=== PATIENT | female | born 1960 | race Caucasian/White ===

== ENCOUNTER → 2016-10-12 | Outpatient (CLI) | payer OTHER ==
[~2016-10-12] MED LIST: HYDR-34 PO; LISI1TAB PO; LISI1TAB10 PO; MELO-198 PO; MELO7.5T PO; NIFE90TA4 PO; OMEP20CA6 PO; OXYC-12 PO; PARO20TA57 PO; PRX20T PO
--- NOTE | 2016-10-12 13:45 | Diagnostic Imaging Report ---
EXAMINATION: DEXA scan. INDICATION: Osteopenia TECHNIQUE: Bone mineral density estimated based on dual energy radiography over the lumbar spine and femoral necks, was performed. FINDINGS: The lumbar spine T-score is -0.8. T score of 0.3 in the left femoral neck and 0.4 on the right side seen. IMPRESSION: Bone mineral density is near the lower limits of normal.. Dictated by: Dictated on workstation # [id number]
== END ==
LOC: RAD 09:47
PROVIDERS: ATTEND Physician Assistant
DX: M81.0 Age-related osteoporosis without current pathological fracture (principal)
CPT/HCPCS: 77080

== ENCOUNTER → 2017-05-17 | Outpatient (CLI) | payer OTHER ==
[2017-05-17 16:10] LABS: BASOPHILS % (AUTO) 0 % (0-10); EOSINOPHILS # (AUTO) 0.1 10^3/uL (0.0-0.3); EOSINOPHILS % (AUTO) 2 % (0-10); LYMPHOCYTES # (AUTO) 1.8 X 10^3 (1.0-4.0); LYMPHOCYTES % (AUTO) 19 % (12-44); MEAN CORPUSCULAR HEMOGLOBIN 29 PG (25-34); MEAN CORPUSCULAR HGB CONC 34 G/DL (32-36); MEAN CORPUSCULAR VOLUME 84 FL (80-99); MEAN PLATELET VOLUME 9.9 FL (7.4-10.4); MONOCYTES # (AUTO) 0.7 X 10^3 (0.0-1.0); MONOCYTES % (AUTO) 7 % (0-12); NEUTROPHILS # (AUTO) 6.8 X 10^3 (1.8-7.8); NEUTROPHILS % (AUTO) 72 % (42-75); PLATELET COUNT 328 10^3/uL (130-400); RED CELL DISTRIBUTION WIDTH 13.2 % (10.0-14.5); WHITE BLOOD COUNT 9.4 10^3/uL (4.3-11.0)
[2017-05-17 16:35] LABS: ALANINE AMINOTRANSFERASE 27 U/L (0-55); ALBUMIN 4.3 GM/DL (3.2-4.5); ANION GAP 8 MMOL/L (5-14); ASPARTATE AMINO TRANSFERASE 21 U/L (5-34); BILIRUBIN,TOTAL 0.4 MG/DL (0.1-1.0); BLOOD UREA NITROGEN 17 MG/DL (7-18); BUN/CREATININE RATIO 22; CARBON DIOXIDE 28 MMOL/L (21-32); CHLORIDE 101 MMOL/L (98-107); CREATINE KINASE 171 U/L (29-168); CREATININE SERUM 0.77 MG/DL (0.60-1.30); GFR ESTIMATED > 60; GLUCOSE 119 MG/DL (70-105); POTASSIUM 3.6 MMOL/L (3.6-5.0); SODIUM 137 MMOL/L (135-145); TOTAL PROTEIN 7.3 GM/DL (6.4-8.2)
[2017-05-17 16:37] LABS: BAND NEUTROPHILS 0 %; BASOPHILS % (MANUAL) 0 %; EOSINOPHILS % (MANUAL) 1 %; LYMPHOCYTES % (MANUAL) 21 %; NEUTROPHILS % (MANUAL) 77 %
[2017-05-17 16:41] LABS: TROPONIN I < 0.30 NG/ML (<0.30)
== END ==
LOC: CARD 15:55
PROVIDERS: ATTEND Nurse Practitioner Family
DX: R07.9 Chest pain, unspecified (principal)
CPT/HCPCS: 36415; 80053; 82550; 84484; 85007; 85027; 93005

== ENCOUNTER → 2017-06-27 | Outpatient (CLI) | payer OTHER ==
[~2017-06-27] MED LIST changes: +ATOR20TA49 PO; +ATOR20TA66 PO; +CHOL400C9 PO; +ERGO50006 PO; +HYDR25TA4 PO; +LISI40TA PO; +METO-387 PO; +NAPR500T PO; +OMEP20CA12 PO; +PARO20TA5 PO; +POTA10CA43 PO; +PREN-102 PO; +SUCR1TAB PO; +TRAZ-28 PO; +VITAMIN D2
== END ==
LOC: CARD 13:44
PROVIDERS: ATTEND Internal Medicine Interventional Cardiology
DX: R07.9 Chest pain, unspecified (principal); I10 Essential (primary) hypertension; E78.5 Hyperlipidemia, unspecified; R53.83 Other fatigue; Z82.49 Family history of ischemic heart disease and other diseases of the circulatory system
CPT/HCPCS: 93306

== ENCOUNTER → 2017-07-12 | Outpatient (CLI) | payer OTHER ==
[~2017-07-12] VITALS: Ht 167.6 cm; Wt 103.0 kg
[~2017-07-12] MED LIST changes: -ATOR20TA49 PO; -ATOR20TA66 PO; +CATHETER FLUSH 10 ML SYR IV PRN; -CHOL400C9 PO; -ERGO50006 PO; -HYDR25TA4 PO; -LISI40TA PO; -METO-387 PO; -NAPR500T PO; -OMEP20CA12 PO; -PARO20TA5 PO; -POTA10CA43 PO; -PREN-102 PO; +REGADENOSON 0.4 MG/5 ML SYR (LEXISCAN) IV ONE; -SUCR1TAB PO; -TRAZ-28 PO; -VITAMIN D2
[2017-07-12 09:44] VITALS: BP 151/78
[2017-07-12 09:52] VITALS: BP 122/70
[2017-07-12 09:55] VITALS: BP 126/64
--- NOTE | 2017-07-13 22:51 | STRESS TEST ---
DATE OF SERVICE: 07/12/2017 PHARMACOLOGICAL NUCLEAR STRESS TEST ATTENDING PHYSICIAN: Dr. Jose Eduardo Woods. REFERRING PHYSICIAN: Dr. Yost. DIAGNOSES: Chest pain, hyperlipidemia, hypertension. PROCEDURE DETAILS: The patient was brought to the stress lab after informed consent was taken. Stress test was performed according to the Lexiscan protocol. A 0.4 mg of Lexiscan was injected. 10.85 mCi of Myoview were given for rest imaging and 31.9 mCi of Myoview were given for stress imaging. Baseline EKG showed sinus rhythm at 74 BPM. Blood pressure was 151/78 mmHg. Maximum heart rate was 97 BPM and blood pressure was 126/64 mmHg. There was no chest pain, arrhythmias, ST-T wave abnormalities noted during Lexiscan infusion. Stress test was stopped secondary to completion of protocol. Review of the myocardial perfusion imaging showed TID of 1.05, EF of 79%. There is an anterior apical/apical reversible defect which is of intermediate size and moderate intensity. Normal wall motion. CONCLUSION: 1. Pharmacological stress test is negative for ischemia. 2. Anterior apical/apical ischemia is noted. This is of intermediate size. Clinical correlation is recommended. Job ID: [id number] DocumentID: [id number] Dictated Date: 07/12/2017 12:12:21 Knife Glazer Date: 07/12/2017 16:34:25 Dictated By: JEROMY WOODS MD
== END ==
LOC: CARD 07:55
PROVIDERS: ATTEND Internal Medicine Interventional Cardiology
DX: E78.5 Hyperlipidemia, unspecified (principal); I10 Essential (primary) hypertension; R53.83 Other fatigue; R07.9 Chest pain, unspecified; Z82.49 Family history of ischemic heart disease and other diseases of the circulatory system
CPT/HCPCS: 78452; 93017

== ENCOUNTER 2017-07-20 05:36 | Outpatient (CLI) | payer OTHER ==
[~2017-07-20] VITALS: Ht 167.6 cm; Wt 102.1 kg
[~2017-07-20 05:36] MED LIST changes: +ATOR20TA49 PO; -CATHETER FLUSH 10 ML SYR IV PRN; +CHOL400C9 PO; +ERGO50006 PO; +HYDR25TA4 PO; +LISI40TA PO; +METO-270 PO; +NAPR500T PO; +OMEP20CA12 PO; +PARO20TA5 PO; +POTA10CA43 PO; +PREN-102 PO; -REGADENOSON 0.4 MG/5 ML SYR (LEXISCAN) IV ONE; +SUCR1TAB PO; +TRAZ-28 PO; +VITAMIN D2
[2017-07-20] MEDS ORDERED: ATOR20TA66 PO (12:45)
== END 2017-07-20 12:47 ==
LOC: PREOP 05:36
PROVIDERS: ATTEND Surgery
DX: Z01.818 Encounter for other preprocedural examination (principal); K21.9 Gastro-esophageal reflux disease without esophagitis; R10.13 Epigastric pain

== ENCOUNTER 2017-07-23 07:13 | Day surgery (SDC) | payer OTHER ==
[~2017-07-23] VITALS: Ht 167.6 cm; Wt 102.1 kg
[~2017-07-23 07:13] MED LIST changes: +ATOR20TA66 PO
[2017-07-23] MEDS ORDERED: NS IV 500 ML 500 ML IV PRN (07:19)
[2017-07-23] MEDS ORDERED: NS IV 500 ML 500 ML ONE (07:23)
[2017-07-23] MEDS ORDERED: HURRICAINE EXT TUBE (BENZOCAINE) XX PRN (07:30)
[2017-07-23 07:46] VITALS: BP 148/83
[2017-07-23] MEDS ORDERED: fentaNYL INJECTION 100 MCG/2 ML AMP ONE (08:29)
[2017-07-23] MEDS ORDERED: HURRICAINE EXT TUBE (BENZOCAINE) ONE (08:29)
[2017-07-23] MEDS ORDERED: MIDAZOLAM 2 MG/2 ML (VERSED) VIAL ONE ×4 (08:29→09:03)
--- NOTE | 2017-07-23 08:40 | Conscious Sedation/ASA ---
Conscious Sedation Pre-Proced Time Reviewed: 08:40 ASA Class: 2 Airway Mallampati Classification: (curyung appropriate class) I. II. III, IV Lungs Heart ASA score ASA 1: a normal healthy patient ASA 2: a patient with a mild systemic disease (mid diabetes, controlled hypertension, obesity ASA 3: a patient with a severe systemic disease that limits activity (angina , COPD, prior Myocardial infarction) ASA 4: a patient with an incapacitating disease that is a constant threat to life (CHF, renal failure) ASA 5: a moribund patient not expected to survive 24 hrs. (ruptured aneurysm) ASA 6: a declared brain patient whose organs are being harvested. For emergent operations, add the letter E after the classification Grade 1 Sedation Plan: Discussed options with patient/fam Note The patient is an appropriate candidate to undergo the planned procedure, sedation, and anesthesia. The patient immediately re-assessed prior to indication. RYLAND BUTTERFIELD MD Jul 23, 2017 8:40 am
--- NOTE | 2017-07-23 08:40 | History & Physicial ---
History of Present Illness History of Present Illness Reason for visit/HPI to undergo an upper endoscopy to evaluate epigastric and substernal pain. Date of Admission Date Seen by Provider: Jul 23, 2017 Time Seen by Provider: 08:38 I consulted on this patient on 07/23/17 08:38 Attending Physician Ryland Sorensen MD Admitting Physician Ramona Yost MD Consult Allergies and Home Medications Allergies Coded Allergies: Verapamil (Unverified Allergy, Severe, throat swelling, 02/12/10) sulfamethoxazole (Unverified Allergy, Mild, Rash, fever, 02/12/10) trimethoprim (Unverified Allergy, Mild, Rash, fever, 02/12/10) Home Medications Atorvastatin Calcium 20 Mg Tablet, 20 MG PO DAILY, (Reported) Cholecalciferol (Vitamin D3) 400 Unit Capsule, 400 UNIT PO DAILY, (Reported) Ergocalciferol (Vitamin D2) 50,000 Unit Capsule, 50,000 UNIT PO [place], (Reported) Hydrochlorothiazide 25 Mg Tablet, 25 MG PO DAILY, (Reported) Lisinopril 40 Mg Tablet, 40 MG PO DAILY, (Reported) Metoprolol Succinate 25 Mg Tab.er.24h, 25 MG PO DAILY, (Reported) Naproxen 500 Mg Tablet, 500 MG PO BID, (Reported) Omeprazole 20 Mg Capsule.dr, 20 MG PO BID, (Reported) Paroxetine HCl 20 Mg Tablet, 40 MG PO HS, (Reported) TAKES 2 (20MG) TABLETS Potassium Chloride 10 Meq Capsule.er, 10 MEQ PO DAILY, (Reported) Vits #93/Iron Fum/FA 1 Each Tablet, 1 TAB PO DAILY, (Reported) Sucralfate 1 Gm Tablet, 1 GM PO ACHS, (Reported) Trazodone HCl 50 Mg Tablet, 50 MG PO HS, (Reported) Past Suolris-Lctigf-Vhuqnl Hx Patient Social History Alcohol Use: Denies Use Recreational Drug Use: No Smoking Status: Never a Smoker Recent Foreign Travel: No Contact w/other who traveled: No Recent Hopitalizations: No Recent Infectious Disease Expo: No Immunizations Up To Date Tetanus Booster (TDap): Unknown Pediatric: No Seasonal Allergies Seasonal Allergies: No Respiratory Currently Using CPAP: No Currently Using BIPAP: No Cardiovascular Yes High Cholesterol, Hypertension Reproductive System Hx Reproductive Disorders: No Sexually Transmitted Disease: No HIV/AIDS: No Female Reproductive Disorders: Denies Gastrointestinal Gastroesophageal Reflux HEENT Loss of Vision: Bilateral Hearing Impairment: Denies Cancer Did You Recieve Any Treatments: No Psychosocial Behavioral Health Disorders: Depression Constitutional: no symptoms reported EENTM: no symptoms reported Respiratory: no symptoms reported Cardiovascular: no symptoms reported Gastrointestinal: see HPI Genitourinary: no symptoms reported Musculoskeletal: no symptoms reported Skin: no symptoms reported Psychiatric/Neurological: No Symptoms Reported Physical Exam Vital Signs Vital Sign - Last 12Hours 07/23/17 07:46 Temp 98.0 Pulse 75 Resp 18 B/P (MAP) 148/83 Pulse Ox 96 O2 Delivery Room Air Capillary Refill : General Appearance: No Apparent Distress HEENT: Normal ENT Inspection Neck: Normal Inspection Respiratory: Lungs Clear Cardiovascular: Regular Rate, Rhythm Gastrointestinal: Non Tender, Soft Back: Normal Inspection Extremity: Normal Inspection Neurologic/Psychiatric: Alert, Oriented x3 Skin: Warm/Dry Assessment/Plan Assessment and Plan lady with epigastric pain. For upper endoscopy. Problems: RYLAND SORENSEN MD Jul 23, 2017 8:39 am
[2017-07-23] MEDS: MIDAZOLAM 2 MG/2 ML (VERSED) VIAL IVP PRN ×4 (09:02→09:11)
[2017-07-23] MEDS: fentaNYL INJECTION 100 MCG/2 ML AMP IVP PRN ×2 (09:03→09:06)
--- NOTE | 2017-07-23 09:28 | Endo Procedure Record ---
Endo Procedure Report Date of Procedure Jul 23, 2017 Surgeon (s) RYLAND BUTTERFIELD MD Post Procedure/Op Diagnosis grade 2 esophagitis. Multiple distal gastric erosions Procedure Performed EGD with antral biopsy Description of Procedure Anesthesia Type: Conscious Sedation Specimen(s) collected/removed antral mucosa for H. pylori Description of the Procedure Indication for procedure: This lady came in for an upper endoscopy to evaluate worsening of her epigastric pain. Informed consent was obtained after reviewing the procedure in detail. Description of procedure: She was placed in left lateral decubitus position and her vital signs were monitored. Conscious sedation was achieved using Versed and fentanyl. The flexible gastroscope was introduced down the esophagus, past the stomach, into the proximal duodenum. Findings: Esophagus: Short hiatal hernia with grade 2 esophagitis. There was no stricture. Stomach: Multiple distal gastric erosions with found. Photodocumentation and biopsy for H. pylori with obtained. Duodenum: Normal She tolerated the procedure well and was taken back to the nursing area in a stable condition. Impression: Epigastric pain. Grade 2 esophagitis and distal gastric erosions. Helicobacter status pending Copies To: RUTH GRAY MD, XAVIER M MD Jul 23, 2017 9:28 am
[2017-07-23 09:30] VITALS: BP 113/73
--- NOTE | 2017-07-23 09:30 | Discharge Inst-Simple/Standard ---
Discharge Inst-Standard Discharge Medications New, Converted or Re-Newed RX: Other Patient Instructions/Follow Up Plan of Care/Instructions/FU: to avoid nonsteroidals. Activity as Tolerated: Yes Discharge Diet: No Restrictions RYLAND BUTTERFIELD MD Jul 23, 2017 9:30 am
[2017-07-23 10:00] VITALS: BP 123/78
[2017-07-23 10:05] VITALS: BP 123/78
== END 2017-07-23 10:05 | disposition home or self-care (01) ==
LOC: ENDO 07:13
PROVIDERS: ATTEND Surgery
DX: K20.9 Esophagitis, unspecified (principal); K25.9 Gastric ulcer, unspecified as acute or chronic, without hemorrhage or perforation; E78.00 Pure hypercholesterolemia, unspecified; I10 Essential (primary) hypertension

== ENCOUNTER → 2018-06-14 | Outpatient (CLI) | payer OTHER ==
[~2018-06-14] MED LIST changes: -METO-270 PO; +METO-387 PO; +NAPR-1071 PO; -NAPR500T PO; +TRAZ-189 PO; -TRAZ-28 PO
--- NOTE | 2018-06-14 17:59 | Diagnostic Imaging Report ---
INDICATION: Routine screening. Comparison is made with prior study from 08/05/2014 and 11/27/2011. 2-D and 3-D bilateral screening mammography was performed with CAD. The current study was also evaluated with a Computer Aided Detection (CAD) system. FINDINGS: Scattered fibroglandular densities are identified bilaterally. There are benign calcifications bilaterally. Benign nodular density in the inferior right breast appears stable. No new mass or malignant-appearing microcalcifications are seen. The axillae are unremarkable. IMPRESSION: No mammographic features suspicious for malignancy are identified. ACR BI-RADS Category 2: Benign findings. Result letter will be mailed to the patient. Note: At least 10% of breast cancer is not imaged by mammography. Dictated by: Dictated on workstation # [id number]
== END ==
LOC: RAD 11:05
PROVIDERS: ATTEND Nurse Practitioner Family
DX: Z12.31 Encounter for screening mammogram for malignant neoplasm of breast (principal)
CPT/HCPCS: 77067

== ENCOUNTER → 2020-02-12 | Outpatient (CLI) | payer MEDICARE, OTHER ==
[~2020-02-12] MED LIST changes: -METO-387 PO; +MTP25TSR PO; -OMEP20CA12 PO; +OMEP20CA18 PO; -TRAZ-189 PO; +TRZ50T PO
--- NOTE | 2020-02-12 20:32 | Diagnostic Imaging Report ---
INDICATION: Routine screening. COMPARISON: Prior mammogram from 06/14/2018 and 08/05/2014. EXAMINATION: 2D and 3D bilateral screening mammography was performed with CAD. The current study was also evaluated with a Computer Aided Detection (CAD) system. FINDINGS: Scattered fibroglandular densities are identified, bilaterally. Nodular density in the inferior right breast and lateral left breast appear stable. There are scattered benign calcifications in both breasts. No new mass or malignant appearing microcalcification is seen. Axillae are unremarkable. IMPRESSION: No mammographic feature suspicious for malignancy is identified. ACR BI-RADS Category 2: Benign findings. Result letter will be mailed to the patient. Note: At least 10% of breast cancer is not imaged by mammography. Dictated by: Dictated on workstation # [id number]
== END ==
LOC: RAD 10:33
PROVIDERS: ATTEND Family Medicine
DX: Z12.31 Encounter for screening mammogram for malignant neoplasm of breast (principal)
CPT/HCPCS: 77063; 77067

== ENCOUNTER → 2020-05-18 | Outpatient (CLI) | payer MEDICARE, OTHER | LOC: LABNPT 08:38 | PROVIDERS: ATTEND Family Medicine | DX: R05 Cough (principal); R06.00 Dyspnea, unspecified; R53.81 Other malaise; Z20.828 Contact with and (suspected) exposure to other viral communicable diseases | CPT/HCPCS: 87635 ==

== ENCOUNTER → 2020-12-13 | Outpatient (CLI) | payer MEDICARE, OTHER ==
[~2020-12-13] MED LIST changes: -LISI40TA PO; +LISI40TA9 PO
--- NOTE | 2020-12-13 10:33 | Diagnostic Imaging Report ---
INDICATION: Generalized abdominal pain. COMPARISON: None. FINDINGS: The KUB and upright views of the abdomen demonstrate mild constipation without obstruction or ileus. Punctate calcifications are seen in the mid abdomen to the left of the lumbar spine, probably within the gut. If there is clinical suspicion for chronic pancreatitis, CT is recommended. Post operative changes are seen in the lumbar spine. IMPRESSION: 1. Mild constipation without obstruction or free air. 2. Nonspecific punctate calcifications, likely within the gut, as described above. Dictated by: Dictated on workstation # [id number]
== END ==
LOC: RAD 10:02
PROVIDERS: ATTEND Nurse Practitioner Family
DX: K59.00 Constipation, unspecified (principal)
CPT/HCPCS: 74019

== ENCOUNTER 2020-12-27 05:28 | Outpatient (RCR) | payer MEDICARE, OTHER ==
[~2020-12-27] VITALS: Ht 167.6 cm; Wt 98.4 kg
[~2020-12-27 05:28] MED LIST changes: +ASPI-1238 PO; +PANT20TA18 PO; +ROSU5TAB13 PO; +SEMA0.25 SQ; +[UNRECOGNIZED DRUG - CODE] TD
== END 2020-12-27 09:30 | disposition home or self-care (01) ==
LOC: PREOP 05:28
PROVIDERS: ATTEND Surgery
DX: Z01.812 Encounter for preprocedural laboratory examination (principal); K21.9 Gastro-esophageal reflux disease without esophagitis; R19.4 Change in bowel habit; Z20.822 Contact with and (suspected) exposure to COVID-19
CPT/HCPCS: 87635

== ENCOUNTER 2020-12-29 10:43 | Day surgery (SDC) | payer MEDICARE, OTHER ==
[~2020-12-29] VITALS: Ht 167.6 cm; Wt 98.4 kg
[2020-12-29] VITALS (16 sets, daily range): BP systolic 90–113; BP diastolic 52–82
[~2020-12-29 10:43] MED LIST changes: +NS IV 500 ML 500 ML ONE
[2020-12-29] MEDS ORDERED: LIDOCAINE JELLY 2% 6 ML SYRINGE MM PRN (11:00)
[2020-12-29] MEDS ORDERED: HURRICAINE EXT TUBE (BENZOCAINE) XX PRN (11:00)
[2020-12-29] MEDS ORDERED: NS IV 500 ML 500 ML IV PRN (11:00)
[2020-12-29] MEDS ORDERED: fentaNYL INJ 100 MCG/2 ML AMP IVP ONE (11:00)
[2020-12-29] MEDS ORDERED: MIDAZOLAM 5 MG/5 ML (VERSED) VIAL IV ONE (11:00)
--- NOTE | 2020-12-29 11:06 | Conscious Sedation/ASA ---
Conscious Sedation Pre-Proced Time 11:00 ASA Score 2 For ASA 3 and 4: Consider anesthesia and medical clearance. Also, for patients with a history of failed moderate sedation consider anesthesia. Airway Lungs Heart ASA score ASA 1: a normal healthy patient ASA 2: a patient with a mild systemic disease (mid diabetes, controlled hypertension, obesity ASA 3: a patient with a severe systemic disease that limits activity (angina, COPD, prior Myocardial infarction) ASA 4: a patient with an incapacitating disease that is a constant threat to life (CHF, renal failure) ASA 5: a moribund patient not expected to survive 24 hrs. (ruptured aneurysm) ASA 6: a declared brain- patient whose organs are being harvested. For emergent operations, add the letter E after the classification Mallampati Classification Grade 2 Sedation Plan Analgesia, Amnesia, Plan communicated to team members, Discussed options with patient/fam, Discussed risks with patient/fam The patient is an appropriate candidate to undergo the planned procedure, sedation, and anesthesia. The patient immediately re-assessed prior to indication. LALA OLIVER MD Dec 29, 2020 11:06
--- NOTE | 2020-12-29 11:07 | Progress Note-Pre Operative ---
Pre-Operative Progress Note H&P Reviewed The H&P was reviewed, patient examined and no changes noted. Date Seen by Provider: Dec 29, 2020 Time Seen by Provider: 11:00 Date H&P Reviewed: Dec 29, 2020 Time H&P Reviewed: 11:00 Pre-Operative Diagnosis: GERD, dysphagia, screening o LALA OLIVER MD Dec 29, 2020 11:07
--- NOTE | 2020-12-29 11:08 | Discharge Inst-Surgical ---
D/C Lap Instructions-MELODY Follow Up Appt in 2 weeks Activity as tolerated High Fiber Diet 25g or more per day Avoid Alcohol, Caffeine, Spicy Finger and Acid foods. Drink 64 fluid oz or more of fluids per day. Symptoms to Report: Fever over 101 degree F, Nausea/Vomiting If any problems/questions: Contact your physician or go to Emergency Room LALA OLIVER MD Dec 29, 2020 11:08
[2020-12-29] MEDS ORDERED: ONDANSETRON 4 MG/2 ML (SDV) Z0FRAN IVP PRN (11:15)
[2020-12-29] MEDS ORDERED: HYDROcodone/APAP 5 MG/325 MG (LORTAB) TAB PO PRN (11:15)
[2020-12-29] MEDS ORDERED: morphine INJ 10 MG/ML 1ML (SYR OR VIAL) IVP PRN ×2 (11:15)
[2020-12-29] MEDS ORDERED: ACETAMINOPHEN 325 MG TABLET PO PRN (11:15)
[2020-12-29] MEDS ORDERED: LIDOCAINE JELLY 2% 6 ML SYRINGE ONE (12:25)
[2020-12-29] MEDS ORDERED: HURRICAINE EXT TUBE (BENZOCAINE) ONE (12:26)
[2020-12-29] MEDS ORDERED: fentaNYL INJ 100 MCG/2 ML AMP ONE (12:26)
[2020-12-29] MEDS ORDERED: MIDAZOLAM 5 MG/5 ML (VERSED) VIAL ONE ×3 (12:26→13:10)
--- NOTE | 2020-12-29 13:51 | Progress Note-Post Operative ---
Post-Operative Progess Note Surgeon (s)/Education Reporter (s) Surgeon LALA OLIVER MD Education Reporter: none Pre-Operative Diagnosis GERD, dysphagia, screening colo Post-Operative Diagnosis reflux esophagitis(stage 2), mild distal esoph stricture, moderate HH(3cm), moderate gastritis. mild chronic stage 2 ext and int hemorrhoids. Procedure & Operative Findings Date of Procedure 12/29/20 Procedure Performed/Findings EGD with bx and ballon dilatation. colonoscopy. Anesthesia Type cs Estimated Blood Loss Estimated blood loss (mL): minimal Specimens/Packing Specimens Removed ge jxn, antrum LALA OLIVER MD Dec 29, 2020 13:51
--- NOTE | 2020-12-29 18:25 | OPERATIVE REPORT ---
DATE OF SERVICE: 12/29/2020 ATTENDING PRIMARY CARE PHYSICIAN: Ramona Yost MD. PREOPERATIVE DIAGNOSES: Gastroesophageal reflux disease, dysphagia, and screening colonoscopy. POSTOPERATIVE DIAGNOSES: Reflux esophagitis stage II, mild distal esophageal stricture, moderate size hiatal hernia approximately 3 cm in size, moderate gastritis and no distal obstructions. Mild chronic stage II external and internal hemorrhoids. Remainder of the rectum and colon were normal. PROCEDURES PERFORMED: EGD with biopsy and balloon dilatation and colonoscopy. SURGEON: Lala Oliver MD. ANESTHESIA: Conscious sedation. ESTIMATED BLOOD LOSS: Minimal. FINDINGS: Reflux esophagitis stage II, mild distal esophageal stricture, moderate size hiatal hernia approximately 3 cm in size, moderate gastritis and no distal obstructions. Mild chronic stage II external and internal hemorrhoids. Remainder of the rectum and colon were normal. DISPOSITION: The patient tolerated the procedure well. INDICATIONS FOR PROCEDURE: The patient is a 60-year-old female referred over to us for pain in the left upper abdominal quadrant for the past few months. She does have a longstanding history of reflux and has been on omeprazole and she reports that this has helped for the most part; however, has had some recurrence of symptoms. She has also had some issues with abdominal bloating and dysphagia on an intermittent basis. She states that she did have an EGD as well as a balloon dilatation for a stricture approximately seven years ago. She is also in need of a colonoscopy. Her last one was about 10 years ago. She does not report any red blood per rectum nor any dark tarry stools. She also does not report any family history of colon cancer. DESCRIPTION OF PROCEDURE: The patient was brought to the endoscopy suite and laid in the left lateral decubitus position with head slightly elevated. After adequate IV pain and sedative medications and conscious sedation anesthesia, the mouthpiece was applied. The endoscope was placed in the mouth, visualizing the pharynx and hypopharyngeal region. Vocal cords, epiglottis and vallecula identified and appeared to be normal. The endoscope was then gently intubated and the esophageal opening and esophagus insufflated. The endoscope was then advanced to the first, second and third portion of the esophagus. At the level of the GE junction, a reflux esophagitis stage II identified. There did appear to be a mild distal esophageal stricture as well. A biopsy was taken with forceps with visualization of good hemostasis. The endoscope was then advanced in the stomach and endoscope retroflexed, visualizing a moderate sized hiatal hernia approximately 3 cm in size. There was a moderate severity gastritis. No formal ulcerations, polyps or any neoplasms. A biopsy was taken of the stomach antrum with visualization of good hemostasis. The endoscope was then advanced to the pylorus and first and second portion of the duodenum, which appeared normal with no distal obstructions. We then proceeded with the dilatation and the balloon was placed in the stomach and pulled back to the area of the stricture. We first proceeded to 2, then 4, then 6 atmospheres of pressure with 20 mm in luminal diameter with only mild resistance. The balloon was left in place for approximately 60 seconds. The balloon was then desufflated and removed. No mucosal tears were identified as well as no active bleeding. The endoscope was then slowly withdrawn while taking a second look and suctioning residual air with no additional findings. We then proceeded with the colonoscopy portion of procedure. Digital rectal examination was performed, which revealed mild chronic stage II external and internal hemorrhoids, not actively edematous nor inflamed and no bleeding. Normal sphincter tone was felt and there were no palpable masses. The endoscope was then intubated to the anus and rectum gently insufflated. The endoscope was then advanced to the valves of [place] of the rectum with no polyps or any neoplasms identified. We then proceeded through the sigmoid colon, where no diverticulosis was identified. The endoscope was then advanced to the remainder of the descending, transverse and ascending colon to the cecum. These segments were normal as well. No polyps or any neoplasms were identified. The endoscope was then slowly withdrawn while taking a second look and suctioning of residual air with no additional findings. The patient tolerated the procedure well. We are unsure of why she does have the abdominal bloating and pain in the left upper abdominal quadrant after meals; however, she does have a significant size hiatal hernia. She has had a longstanding history of reflux and does take omeprazole, which for the most part, has helped with her symptoms. We will have her continue with medical management for this with small and more frequent meals, avoiding to eating at night as well as head elevation while lying supine. She also needs to avoid caffeinated beverages, spicy, greasy and acidic foods. We will also proceed with an ultrasound of the gallbladder and if this is normal, then a HIDA scan to look for the potential for biliary dyskinesia. From a standpoint of the colon, if this did appear to be normal, we will recommend continued medical management with a high fiber diet with at least 25 grams of fiber daily as well as significant amounts of water to promote soft stools on a daily basis. If she is asymptomatic, she does not need another colonoscopy for another 10 years. Job ID: [id number] DocumentID: [id number] Dictated Date: 12/29/2020 13:46:24 Stogie Packer Date: 12/29/2020 18:24:54 Dictated By: LALA OLIVER MD
== END 2020-12-29 14:27 | disposition home or self-care (01) ==
LOC: ENDO 10:43
PROVIDERS: ATTEND Surgery
DX: Z12.11 Encounter for screening for malignant neoplasm of colon (principal); K64.1 Second degree hemorrhoids; K21.00 Gastro-esophageal reflux disease with esophagitis, without bleeding; K29.50 Unspecified chronic gastritis without bleeding; K22.2 Esophageal obstruction; K44.9 Diaphragmatic hernia without obstruction or gangrene; F32.9 Major depressive disorder, single episode, unspecified; G47.00 Insomnia, unspecified; I10 Essential (primary) hypertension; E78.00 Pure hypercholesterolemia, unspecified; E11.9 Type 2 diabetes mellitus without complications; Z79.82 Long term (current) use of aspirin; Z79.899 Other long term (current) drug therapy; Z88.2 Allergy status to sulfonamides; Z88.1 Allergy status to other antibiotic agents; Z88.8 Allergy status to other drugs, medicaments and biological substances; Z80.0 Family history of malignant neoplasm of digestive organs; Z80.51 Family history of malignant neoplasm of kidney; Z80.1 Family history of malignant neoplasm of trachea, bronchus and lung
CPT/HCPCS: 43239; 43249; G0105; 88305

== ENCOUNTER → 2021-01-17 | Outpatient (CLI) | payer MEDICARE, OTHER ==
[~2021-01-17] MED LIST changes: -NS IV 500 ML 500 ML ONE
--- NOTE | 2021-01-17 13:45 | Diagnostic Imaging Report ---
PROCEDURE: US Gallbladder. TECHNIQUE: Multiple real-time grayscale images were obtained over the right upper quadrant in various projections. INDICATION: Right upper quadrant pain, nausea. COMPARISON: 02/04/2014 FINDINGS: The liver is within normal limits in size. Liver demonstrates diffusely increased echogenicity with a coarsened echotexture and poor acoustic transmission. A lobulated 4.1 x 2.3 x 2.3 cm hypoechoic region is noted within the left hepatic lobe near the falciform ligament. The gallbladder is unremarkable without evidence of gallstones, gallbladder wall thickening, or pericholecystic fluid. The common bile duct is within normal limits measuring 0.5 cm. The pancreas appears hyperechoic but is otherwise unremarkable. The proximal abdominal aorta is obscured by overlying bowel gas, though the mid and distal abdominal aorta is unremarkable. Minimally visualized portions of the inferior vena cava are unremarkable. No significant free fluid. Negative sonographic Rios's sign. IMPRESSION: Fatty infiltration of the liver. Focal hypoechoic region within the left hepatic lobe is favored to relate to focal fatty sparing, though a mass lesion is not totally excluded. Recommend a CT of the abdomen with and without contrast using hepatic mass protocol for further evaluation. Hyperechoic pancreas, likely related to fatty infiltration of the pancreas. Additional findings as described above. Dictated by: Dictated on workstation # [id number]
== END ==
LOC: RAD 08:00
PROVIDERS: ATTEND Nurse Practitioner Family
DX: K76.0 Fatty (change of) liver, not elsewhere classified (principal)
CPT/HCPCS: 76705

== ENCOUNTER → 2021-02-03 | Outpatient (CLI) | payer MEDICARE, OTHER ==
[~2021-02-03] MED LIST changes: +CATHETER FLUSH 10 ML SYR IV PRN
--- NOTE | 2021-02-03 15:40 | Diagnostic Imaging Report ---
INDICATION: Right upper quadrant pain and bloating with nausea. EXAMINATION: HIDA scan, 02/03/2021. FINDINGS: After uneventful administration of 5.36 mCi of Choletec intravenously, subsequent imaging was performed with prompt homogeneous uptake throughout the liver. Gallbladder and proximal small bowel are seen in less than 60 minutes. There is radiotracer noted within the stomach consistent with reflux. Subsequent administration of 8 ounces of Ensure given orally with continued imaging performed. Ejection fraction is calculated at 68.6%. IMPRESSION: 1. No obstructive process. 2. Normal ejection fraction. Dictated by: Dictated on workstation # [id number]
== END ==
LOC: CARD 12:00
PROVIDERS: ATTEND Nurse Practitioner Family
DX: R10.11 Right upper quadrant pain (principal); R14.0 Abdominal distension (gaseous); R11.0 Nausea
CPT/HCPCS: 78227; A9537

== ENCOUNTER → 2021-02-22 | Outpatient (CLI) | payer MEDICARE, OTHER ==
[~2021-02-22] MED LIST changes: -CATHETER FLUSH 10 ML SYR IV PRN
--- NOTE | 2021-02-22 11:41 | Diagnostic Imaging Report ---
INDICATION: Left upper quadrant, pain, nausea, reflux The patient was administered a solid test meal with 1.09 mCi Tc 99M sulfur colloid used for labeling of the meal. Region of interest curves were drawn over the stomach with the percent of retained activity calculated at hourly timed intervals for a total of 4 hours. A time activity curve was generated. FINDINGS: Percent retention as follows: (percent of administered activity retained within the stomach): 1.0 hour: 56% <30% = Rapid, >90% = Delayed 2.0 hour: 38% >60% = Abnormally Delayed 3.0 hour: 21% >30% = Abnormally Delayed 4.0 hour: 17% >10% = Abnormally Delayed IMPRESSION: Mildly delayed gastric emptying at the 4 hour timeframe. Otherwise, gastric imaging is within normal limits. Dictated by: Dictated on workstation # [id number]
== END ==
LOC: CARD 06:39
PROVIDERS: ATTEND Surgery
DX: K21.9 Gastro-esophageal reflux disease without esophagitis (principal)
CPT/HCPCS: 78264; A9541

== ENCOUNTER → 2022-06-20 | Outpatient (CLI) | payer MEDICARE, OTHER ==
--- NOTE | 2022-06-20 12:22 | Diagnostic Imaging Report ---
INDICATION: 62-year-old asymptomatic postmenopausal female COMPARISON: 10/12/2016 FINDINGS: AP Spine L1-L4: [BMD (g/cm2): na] [T-Score: na] [Z-Score: na] [BMD Previous: na] [BMD % Change: na] LT Hip Neck: [BMD (g/cm2): 1.003] [T-Score: -0.2] [Z-Score: 0.4] LT Hip Total: [BMD (g/cm2):1.056] [T-Score:0.4] [Z-Score: 0.6] [BMD Previous: 1.042] [BMD % Change: 1.3] RT Hip Neck: [BMD (g/cm2):1.000] [T-Score:-0.3] [Z-Score:0.3] RT Hip Total: [BMD (g/cm2):1.057] [T-score:0.4] [Z-Score:0.6] [BMD Previous:1.064] [BMD % Change:-0.7] *Indicates significant change from prior examination based on 95% confidence level. World Health Organization criteria for BMD interpretation classify patients as Normal (T-score at or above -1.0), Osteopenic (T-score between -1.0 and -2.5) or Osteoporotic (T-score at or below -2.5). LIMITATIONS AND MODIFICATION: Lumbar spine cannot be utilized due to instrumented fusion. FRACTURE RISK (FRAX SCORE): The ten year probability of (%): Major Osteoporotic Fracture: [na] Hip Fracture: [na] IMPRESSION: 1. Normal bone mineral density. 2. No significant change in bone mineral density since prior examination. 3. See below National Osteoporosis Foundation guidelines on when to potentially initiate pharmacologic therapy. Based on the National Osteoporosis Foundation Guidelines, pharmacologic treatment should be initiated in any of the following, unless clinical conditions suggest otherwise: * Any patient with prior fragility fracture of the hip or vertebrae. A spine fracture indicates 5X risk for subsequent spine fracture and 2X risk for subsequent hip fracture. * Osteoporosis (T-score <-2.5). * Postmenopausal women and men age 50 and older with low bone mass/osteopenia (T-score between -1.0 and -2.5) by DXA and 10-year major osteoporotic fracture greater than 20% or a 10-year probability of hip fracture greater than 3%. These fracture risks are supplied above in the FRAX score, if applicable. * Clinician judgement and/or patient preferences may indicate treatment for people with 10-year fracture probabilities above or below these levels. Dictated by: Dictated on workstation # [id number]
--- NOTE | 2022-06-20 12:41 | Diagnostic Imaging Report ---
INDICATION: Routine screening. COMPARISON: 02/12/2020 and 06/14/2018. TECHNIQUE: 2D and 3D bilateral screening mammography was performed with CAD. FINDINGS: Scattered fibroglandular densities are identified bilaterally. The nodular density in the posterior and inferior right breast is stable. The nodular density in the outer left breast is stable. There are scattered benign calcifications bilaterally. No spiculated mass or malignant-appearing microcalcifications are seen. The axillae are unremarkable. IMPRESSION: No mammographic features suspicious for malignancy are identified. ACR BI-RADS Category 2: Benign findings. Result letter will be mailed to the patient. Note: At least 10% of breast cancer is not imaged by mammography. Dictated by: Dictated on workstation # [id number]
== END ==
LOC: RAD 08:30
PROVIDERS: ATTEND Family Medicine
DX: Z12.31 Encounter for screening mammogram for malignant neoplasm of breast (principal); Z78.0 Asymptomatic menopausal state
CPT/HCPCS: 77063; 77067; 77080

== ENCOUNTER → 2023-04-11 | Outpatient (CLI) | payer MEDICARE, OTHER ==
[~2023-04-11] MED LIST changes: -POTA10CA43 PO; +POTA10CA44 PO
--- NOTE | 2023-04-11 12:13 | Diagnostic Imaging Report ---
PROCEDURE: US carotid duplex, bilateral. TECHNIQUE: Multiple real-time grayscale images were obtained over the carotid arteries in various projections, bilaterally. Additional spectral analysis and color Doppler duplex images were also obtained. INDICATION: Left carotid bruit. FINDINGS: There is mild plaque noted in both carotid systems. Velocities are normal bilaterally. No high-grade stenosis or occlusion is identified. Both vertebral arteries show antegrade flow. IMPRESSION: No evidence of a hemodynamically significant stenosis. Parameters based on the consensus panel [employer] and Doppler ultrasound criteria published August 2003, Radiology, Volume 229. DOPPLER (peak systolic velocity M/S Right Left CCA .80 .98 ICA Proximal .88 .91 ICA Mid .92 .52 ICA Distal .63 .71 RATIO 1.15 .93 ECA .95 .76 VERT .73 .41 Dictated by: Dictated on workstation # [id number]
== END ==
LOC: RAD 08:33
PROVIDERS: ATTEND Family Medicine
DX: R09.89 Other specified symptoms and signs involving the circulatory and respiratory systems (principal)
CPT/HCPCS: 93880

== ENCOUNTER → 2023-09-04 | Outpatient (CLI) | payer MEDICARE ==
[~2023-09-04] MED LIST changes: -POTA10CA44 PO; +POTA10CA84 PO
--- NOTE | 2023-09-04 10:12 | Diagnostic Imaging Report ---
EXAMINATION: 3D bilateral screening mammogram with CAD. INDICATION: Screening. COMPARISON: This study was compared to the prior exams of 06/20/2022, 02/12/2020, and 06/14/2018. PERSONAL HISTORY: At this time, there are no current complaints. FINDINGS: There are scattered areas of fibroglandular density. Overall, there does not appear to have been any significant change when compared to the prior exam. There is no primary or secondary sign of malignancy noted. IMPRESSION: There is no radiographic evidence for malignancy. ACR BI-RADS Category 1: Negative. Result letter will be mailed to the patient. Note: At least 10% of breast cancer is not imaged by mammography. Dictated by: Dictated on workstation # [id number]
== END ==
LOC: RAD 07:30
PROVIDERS: ATTEND Nurse Practitioner Family
DX: Z12.31 Encounter for screening mammogram for malignant neoplasm of breast (principal)
CPT/HCPCS: 77063; 77067